=== PATIENT | male | born 1990 | race Caucasian/White ===

== ENCOUNTER 2017-08-16 14:06 | Emergency (ER) | payer OTHER, BC ==
[~2017-08-16] VITALS: Ht 175.3 cm; Wt 86.5 kg
[~2017-08-16 14:06] MED LIST: FLEXERIL10 MG PO; MOTRIN600 MG PO; MOTRIN800 MG PO
[2017-08-16 15:53] VITALS: BP 135/88
== END 2017-08-16 16:04 | disposition home or self-care (01) ==
LOC: EME 14:06
DX: R51 Headache (principal); M79.602 Pain in left arm; V49.40XA Driver injured in collision with unspecified motor vehicles in traffic accident, initial encounter
CPT/HCPCS: 99281; 99283